=== PATIENT | male | born 1975 | race Caucasian/White ===

== ENCOUNTER 2020-03-14 14:07 | Outpatient (CLI) | payer OTHER ==
[2020-03-16] MEDS ORDERED: PROTONIX40 MG PO (13:43)
[2020-03-16] MEDS ORDERED: COZAAR25 MG PO (13:43)
== END 2020-03-14 15:00 | disposition home or self-care (01) ==
LOC: LAB 14:07
PROVIDERS: ATTEND Urology
DX: Z20.828 Contact with and (suspected) exposure to other viral communicable diseases (principal)

== ENCOUNTER 2020-03-19 06:54 | Day surgery (SDC) | payer OTHER ==
[~2020-03-19 06:54] MED LIST: COZAAR25 MG PO; PROTONIX40 MG PO
== END 2020-03-19 18:25 | disposition home or self-care (01) ==
LOC: CIR.AMB 06:54
PROVIDERS: ATTEND Urology
DX: N40.0 Benign prostatic hyperplasia without lower urinary tract symptoms (principal); Z20.828 Contact with and (suspected) exposure to other viral communicable diseases; Z98.52 Vasectomy status